=== PATIENT | male | born 1945 | race Hispanic/Latino ===

== ENCOUNTER 2016-12-09 13:50 | Day surgery (SDC) | payer MEDICARE ==
[2016-12-09] MEDS ORDERED: Propofol 10 mg/ml Inj (20 ML) ONE (13:59)
[2016-12-09 14:00] VITALS: BMI 30.1
--- NOTE | 2016-12-09 14:02 | ED PDOC ---
Arrival/HPI - General Time Seen by Provider: 12/09/16 13:53 - History of Present Illness Narrative History of Present Illness (Text): 71 y/o M p/w facial hematoma s/p facelift being performed in office by Dr. Shaw. Patient arrives to ER with drains in place, in no acute distress. Dr. Shaw reports that further intervention is required but patient can not tolerate due to pain. Denies fever, vomiting, dyspnea. Family/Social History Family/Social History: No Known Family HX Allergies/Home Meds Allergies/Adverse Reactions: Allergies No Known Allergies Allergy (Verified 12/09/16 13:57) Review of Systems - Physician Review All systems were reviewed & negative as marked: Yes - Review of Systems Constitutional: absent: Fevers Respiratory: absent: SOB Physical Exam Vital Signs Temp Pulse Resp BP Pulse Ox 12/09/16 13:52 98.1 F 66 16 155/79 H 98 Temperature: Afebrile Pulse: Regular Appearance: Positive for: Non-Toxic - Systems Exam Head: Present: Other (Bandage over lower face with drains in place) Respiratory/Chest: No: Accessory Muscle Use Cardiovascular: Present: Regular Rate and Rhythm Psychiatric: Present: Alert Medical Decision Making ED Course and Treatment: Dr. Shaw at bedside, will take patient to OR. Disposition/Present on Arrival - Present on Arrival Any Indicators Present on Arrival: No - Disposition Have Diagnosis and Disposition been Completed?: Yes Diagnosis: Postoperative hematoma Disposition: HOSPITALIZED Disposition Time: 14:01 Patient Plan: Admission Condition: STABLE
[2016-12-09] MEDS ORDERED: Lidocaine 1%/Epinephrine 1:100000 30 ml vial ONE (14:10)
[2016-12-09] MEDS ORDERED: Succinylcholine 200 mg/10 ml Inj IV ONE (14:27)
[2016-12-09 14:38] LABS: BASO # 0.04 K/mm3 (0.0-2.0); BASO % 0.3 % (0.0-3.0); EOS # 0.2 (0.0-0.7); EOS % 1.5 % (1.5-5.0); GRAN # 10.52 (1.4-6.5); LYMPH # 2.1 (1.2-3.4); LYMPH % 15.4 % (22.0-35.0); MEAN CELL VOLUME 88.1 fL (80.0-105.0); MEAN CORPUSCULAR HEMOGLOBIN 29.8 pg (25.0-35.0); MEAN CORPUSCULAR HGB CONC 33.8 g/dl (31.0-37.0); MEAN PLATELET VOLUME 9.9 fl (7.0-11.0); MONO # 0.8 (0.1-0.6); MONO % 5.8 % (1.0-6.0); PLATELET COUNT 203 10^3/uL (120.0-450.0); RED CELL DISTRIBUTION WIDTH 14.1 % (11.5-14.5); WHITE BLOOD COUNT 13.7 10^3/ul (4.5-11.0)
[2016-12-09 14:44] LABS: ALB/GLOB RATIO 1.1 (1.1-1.8); ALBUMIN 3.9 g/dL (3.0-4.8); ALT/SGPT 23 U/L (7-56); AST/SGOT 21 U/L (15-59); BLOOD UREA NITROGEN 20 mg/dL (7-21); CALCIUM 9.5 mg/dL (8.4-10.5); GFR AFRICAN-AMERICAN > 60; GFR NON-AFRICAN AMERICAN > 60
[2016-12-09 14:49] LABS: PARTIAL THROMBOPLASTIN TIME 26.8 Seconds (23.7-30.8); PROTHROMBIN TIME 10.8 Seconds (9.9-11.8)
[2016-12-09] MEDS ORDERED: Bacitracin Ointment 30 GM TUBE ONE (15:00)
--- NOTE | 2016-12-09 15:24 | CARD ---
APPROVED REPORT EKG Measurement Heart [id number] MD [id number] [id number] <Conclusion> Normal sinus rhythm Left axis deviation PRWP V 1 - 6
[2016-12-09] MEDS ORDERED: Thrombin Topical 5,000 IU Spray Kit ONE (15:44)
[2016-12-09] MEDS ORDERED: HYDROmorphone 0.5 mg/0.5 ml ISec IVP PRN (17:28)
[2016-12-09] MEDS ORDERED: Sodium Chloride 0.9% 1,000 ML IV SCH (17:30)
[2016-12-09] MEDS ORDERED: HYDROmorphone 0.5 mg/0.5 ml ISec ONE ×2 (17:38→17:58)
[2016-12-09] MEDS ORDERED: Oxycodone/Acetaminophen 5/325 mg Tab PO PRN (17:57)
[2016-12-09] MEDS ORDERED: HYDROmorphone 1 mg/ml ISec IM PRN (18:29)
[2016-12-09] MEDS ORDERED: Lactated Ringer's 1,000 ML IV SCH (19:00)
[2016-12-10] MEDS ORDERED: ceFAZolin 2 GM in Sodium Chloride 0.9% 100 ML IVPB SCH
[2016-12-10] MEDS ORDERED: ceFAZolin 1 gm in NS 2 GM/200 ML BAG IVPB SCH
[2016-12-10 08:01] VITALS: BP 117/51; PULSE 62; RESP 18; TEMP 98.8; O2SAT 95
--- NOTE | 2016-12-10 09:58 | CP.PCM.HP ---
Present on Admission - Present on Admission Any Indicators Present on Admission: No History of DVT/PE: No History of Uncontrolled Diabetes: No Urinary Catheter: No Decubitus Ulcer Present: No Past Patient History - Infectious Disease Hx of Infectious Diseases: None - Past Social History Smoking Status: Never Smoked - CARDIAC Hx Hypertension: Yes - MUSCULOSKELETAL/RHEUMATOLOGICAL Hx Falls: No - PSYCHIATRIC Hx Substance Use: No - SURGICAL HISTORY Hx Surgeries: Yes (PT WAS HAVING FACE LIFT TODAY AND DEVELOPED HEMATOMA LEFT SIDE) - ANESTHESIA Hx Anesthesia Reactions: No Hx Malignant Hyperthermia: No Meds Allergies/Adverse Reactions: Allergies Allergy/AdvReac Type Severity Reaction Status Date / Time No Known Allergies Allergy Verified 12/09/16 13:57 Results - Vital Signs Recent Vital Signs: Last Vital Signs Temp 98.8 F 12/10/16 06:00 Pulse 62 12/10/16 06:00 Resp 18 12/10/16 06:00 BP 117/51 L 12/10/16 06:00 Pulse Ox 95 12/10/16 06:00 - Labs Result Diagrams: 12/09/16 14:30 12/09/16 14:30 Labs: Laboratory Results - last 24 hr 12/09/16 12/09/16 12/09/16 14:30 14:30 14:30 WBC 13.7 H RBC 4.70 Hgb 14.0 Hct 41.4 L MCV 88.1 MCH 29.8 MCHC 33.8 RDW 14.1 Plt Count 203 MPV 9.9 Gran % 77.0 H Lymph % (Auto) 15.4 L Ada % (Auto) 5.8 Eos % (Auto) 1.5 Baso % (Auto) 0.3 Gran # 10.52 H Lymph # 2.1 Ada # 0.8 H Eos # 0.2 Baso # 0.04 PT 10.8 INR 1.00 APTT 26.8 Sodium 141 Potassium 4.1 Chloride 106 Carbon Dioxide 24 Anion Gap 15 BUN 20 Creatinine 1.0 Est GFR ( Amer) > 60 Est GFR (Non-Af Amer) > 60 Random Glucose 104 Calcium 9.5 Total Bilirubin 0.8 AST 21 ALT 23 Alkaline Phosphatase 99 Total Protein 7.6 Albumin 3.9 Globulin 3.7 Albumin/Globulin Ratio 1.1 Blood Type Blood Type Confirm Antibody Screen BBK History Checked 12/09/16 12/10/16 14:30 08:25 WBC RBC Hgb Hct MCV MCH MCHC RDW Plt Count MPV Gran % Lymph % (Auto) Ada % (Auto) Eos % (Auto) Baso % (Auto) Gran # Lymph # Ada # Eos # Baso # PT INR APTT Sodium Potassium Chloride Carbon Dioxide Anion Gap BUN Creatinine Est GFR ( Amer) Est GFR (Non-Af Amer) Random Glucose Calcium Total Bilirubin AST ALT Alkaline Phosphatase Total Protein Albumin Globulin Albumin/Globulin Ratio Blood Type O POSITIVE Blood Type Confirm O POSITIVE Antibody Screen Negative BBK History Checked No verified bt Assessment & Plan - Assessment and Plan (Free Text) Plan: Full H&P dictated number [id number]
--- NOTE | 2016-12-29 10:25 | OP ---
This is Dr. Bry Shaw from [facility] dictating an operative report on patient Alex Bains. Patient Name: Alex Bains Date of Operation : 12/09/2016 Operative Surgeon: Dr Tani M.D. Anesthesia: General, Endotracheal intubation Preoperative Diagnosis: Facial hematoma Postoperative Diagnosis: Same Procedure/s: I & D of facial hematoma with revision of facelift. Description of Operation: The patient was evaluated by the department of otolaryngology. The patient was in my office undergoing face-neck lift procedure when near the end of the completion of the procedure there was noted to have blood accumulation in the left side of the cheek. At this time, I thought the patient would be unable to tolerate opening and evacuating the hematoma in the office secondary to pain constraints that the patient was experiencing. The decision was made to bring the pt to the hospital under general anesthesia to open and drain the wound. Pt was brought via EMS to the hospital and brought up to the operating room. After informed consent was obtained from pt, patient clearly understood the risks for reversal alternative of the performing the procedure. Patient was agreeable and was transferred back to operating suite, he was adequately anesthetized by general anesthesia via endotracheal intubation. The pt was then reprepped and draped in the usual sterile fashion. The left side face was opened with scissors. Exploration of the cheek wound revealed hematoma which was evacuated. There was a small vessel anteriorly on the skin flap and also on the SMAS musculature that was cauterized with a bipolar cautery. Looking under the submental incision there were also small bleeding vessels in this area that were cauterized with bipolar cautery. After cleansing with bacitracin irrigation and replacing drains, the wound was closed in a triple layer fashion with 4-0 vicryl and 5-0 prolene and yong posteriorly. Pt tolerated procedure well, he was cleansed and wrap was applied to the patient consisting of telfa, bacitracin , prolex and coban dressing. Pt tolerated procedure well, was woken from anesthesia and sent to postoperative care unit in stable condition. Dictated by: Dr. Colin M.D. [facility]
--- NOTE | 2016-12-29 10:44 | HP ---
This is dictated by Dr. Bry Shaw Date of history and physical 12/09/2016 Chief complaint is facial hematoma. Patient is 71 yo male with a PMHx of hypertension, coronary artery disease on aspirin who was seen in the outpatient center for evaluation of facial rhytids. Desired cosmetic facelift procedure. Patient was taken off his aspirin therapy for approximately 5 days and facelift procedure was performed in the outpatient center on 12/09/2016 under local anesthesia.During the procedure in the office, patient had exquisite pain and was unable to tolerate the procedure and developed a hematoma to the left face that needed evacuation. Being that the patient would not be able to tolerate this in office, the decision was made to send the patient to the ER for admission and operative intervention. Patient does deny chest pain , shortness of breath , palpitations, lightheadedness, dizziness, or other complaints . PMHx: As above Allergies: NKDA Medications: Were reviewed. SocHx: Patient denies tobacco, alcohol, or illicit drug use use. Review of systems was conducted entirely and the pertinent positives are listed as such in the history of present illness and physical examination Physical Exam: Vitals: Temperature 98.1 . BP 155/79. Pulse 66 . Respiratory rate 16 saturate 98 % on room air GEN: Patient is an age appropriate 71 yo male. He has no NAD. Comfortable secondary pain. He is answering questions appropriately in sentences. Heent: Cranial nerve 7 appears intact as of 1-6 Obvious hematoma to left face with surrounding ecchymosis. The right face of incision is partially closed and currently he has a head wrap dressing in place. Nose(160) is not prone to epistaxis.Ears are unremarkable oral cavity, oropharynx. The(174.5-180.8) Neck: Neck is supple(180.8 -181.7). There's no questions. Labs: Red count 13.7, hemoglobin 14.0, platelets are 203, (193.5)profiles unremarkable Radiographic studies are none. Assessment and plan: Patient is a 71 yo mal undergoing facelift procedure in the outpatient center. Unable to tolerate secondary to pain and discomfort. Also developed a hematoma to the left face. Plan will be to admit the patient to the operating room for operative intervention to form a revision of facelift procedure as well as to evacuation of the hematoma. (222.1-227) patient was transferred by the OR and taken for operative intervention. DO ECTOR Gallardo
== END 2016-12-10 12:30 | disposition home or self-care (01) ==
LOC: ED 13:50 → SDS 14:25 → 3RNO 18:49 → SDS 12-10 12:30
PROVIDERS: ATTEND Otolaryngology Otolaryngology/Facial Plastic Surgery
DX: L76.31 Postprocedural hematoma of skin and subcutaneous tissue following a dermatologic procedure (principal); Y83.4 Other reconstructive surgery as the cause of abnormal reaction of the patient, or of later complication, without mention of misadventure at the time of the procedure
CPT/HCPCS: 10140; 36415; 80053; 85025; 85610; 85730; 86850; 86900; 93005; 99284; J0330; J0360; J0690 ×2; J1170 ×3; J2405; J2704; J3010; J7040